=== PATIENT | male | born 1955 ===

== ENCOUNTER 2016-09-26 17:40 | Emergency (ER) | payer SELFPAY ==
[2016-09-26 18:06] LABS: BASO # 0.1 K/mm3 (0.0-0.2); BASO % 1.6 % (0.2-1.0); EOS # 0.2 (0.0-0.5); EOS % 2.8 % (0.9-2.9); HEMATOCRIT 44.3 % (32.0-52.0); HEMOGLOBIN 14.9 gm/l (14.0-18.0); IMM NEUT% 0.1 % (0-1); LYMPH # 3.5 (1.0-4.8); LYMPH % 47.3 % (15-45); MEAN CELL VOLUME 87.2 fl (80.0-94.0); MEAN CORPUSCULAR HEMOGLOBIN 29.3 pg (27.0-31.0); MEAN CORPUSCULAR HGB CONC 33.6 g/dl (33.0-37.0); MEAN PLATELET VOLUME 10.3 fl (7.4-10.4); MONO # 0.5 (0.0-0.8); MONO % 6.9 % (4-12); NEUT % 41.3 % (43-75); PLATELET COUNT 199 K/mm3 (130-400); RED CELL DISTRIBUTION WIDTH 13.2 % (11.5-14.5)
[2016-09-26] MEDS ORDERED: ONDANSETRON 4 MG/2ML 2 ML VIAL ONE (18:11)
[2016-09-26] MEDS ORDERED: ACETAMINOPHEN 325 MG TABLET ONE (18:12)
[2016-09-26] MEDS ORDERED: ASPIRIN CHEWTAB 81 MG TABLET ONE (18:12)
[2016-09-26 18:15] LABS: ALB/GLOB RATIO 1.3 (>1.0); CALCIUM 9.4 mg/dL (8.6-10.3)
[2016-09-26] MEDS ORDERED: DIPHENHYDRAMINE HCL 50 MG/1 ML VIAL ONE (19:53)
--- NOTE | 2016-09-26 20:25 | RAD ---
EXAMINATION:CHEST - 2 VIEWS CLINICAL INDICATION: Chest pain COMPARISON: 06/06/2016. FINDINGS: The cardiomediastinal silhouette is unaltered from the prior exam. Very mild right mediastinal shift is unchanged. There is no adenopathy identified. There is no pleural effusion. The lungs are clear. The osseous structures are unremarkable for age. IMPRESSION: Negative PA and lateral views of the chest. No acute cardiopulmonary process is identified.
== END 2016-09-26 22:59 | disposition home or self-care (01) ==
LOC: ED 17:40
DX: R07.9 Chest pain, unspecified (principal); R11.0 Nausea; I25.10 Atherosclerotic heart disease of native coronary artery without angina pectoris; F17.210 Nicotine dependence, cigarettes, uncomplicated; I25.2 Old myocardial infarction; Z95.5 Presence of coronary angioplasty implant and graft; Z86.73 Personal history of transient ischemic attack (TIA), and cerebral infarction without residual deficits
CPT/HCPCS: 85025; 80053; 84484 ×2; 71020; 96375; 99283; 96374; 93005; 99284; A9270 ×2; J1200; J2405